=== PATIENT | female | born 1960 | race Caucasian/White ===

== ENCOUNTER 2019-04-03 10:45 | Emergency (ER) | payer OTHER ==
[2019-04-03] MEDS ORDERED: Acetaminophen 500 MG TAB ONE (11:20)
[2019-04-03] MEDS ORDERED: Labetalol HCl 100 MG/20 ML VIAL ONE (11:20)
[2019-04-03] MEDS ORDERED: Ondansetron PF 4 MG/2 ML Vial ONE (11:20)
[2019-04-03 11:31] LABS: #Basophils 0.1 thou/uL (0.0-0.2); #Eosinphils 0.1 thou/uL (0.0-0.7); #Lymphocytes 3.1 thou/uL (1.20-3.40); #Monocytes 0.5 thou/uL (0.11-0.59); %Basophils 1.2 % (0.0-1.0); %Eosinophils 1.2 % (0.0-10.0); %Lymphocytes 45.5 % (21.0-51.0); %Monocytes 7.4 % (0.0-10.0); %Neutrophils 44.7 % (42.0-75.0); Hemoglobin 14.5 g/dL (12.0-16.0); Mean Corpuscular HGB CONC 33.1 g/dL (32.0-36.0); Mean Corpuscular Hemoglobin 28.9 pg (27.0-31.0); Mean Corpuscular Volume 87.3 fL (78.0-98.0); Mean Platelet Volume 6.3 fL (7.4-10.4); Platelet Count 321 thou/uL (130-400); RBC Distribution Width 12.3 % (11.5-14.5); Red Blood Cell (RBC) Count 5.01 mill/uL (4.20-5.40); White Blood Cell (WBC) Count 6.8 thou/uL (4.8-10.8)
--- NOTE | 2019-04-03 11:32 | RAD ---
EXAM: Chest PA and lateral: HISTORY: Headache COMPARISON: 05/02/2018 FINDINGS: Lung peace are clear. Vascular markings are normal. Heart and mediastinum appear unremarkable. Osseous structures are unremarkable. IMPRESSION: Unremarkable chest
[2019-04-03 11:42] LABS: ALT (SGPT) 22 U/L (8-55); AST (SGOT) 20 U/L (5-34); Albumin 4.3 g/dL (3.5-5.0); Alkaline Phosphatase 101 U/L (40-110); Anion Gap 12 mmol/L (10-20); BUN (Urea Nitrogen) 13 mg/dL (9.8-20.1); Bilirubin, Total 0.4 mg/dL (0.2-1.2); Calc. Creatinine Clearance 0 mL/min (70-130); Carbon Dioxide 24 mmol/L (22-29); Chloride 106 mmol/L (98-107); Estimated GFR-MDRD 85; Globulin 3.4 g/dL (2.4-3.5); Glucose 116 mg/dL (70-105); Potassium 3.9 mmol/L (3.5-5.1); Protein, Total 7.7 g/dL (6.0-8.3); Sodium 138 mmol/L (136-145)
== END 2019-04-03 12:39 | disposition home or self-care (01) ==
LOC: MADERS 10:45
DX: I10 Essential (primary) hypertension (principal); E11.9 Type 2 diabetes mellitus without complications; K21.9 Gastro-esophageal reflux disease without esophagitis; J44.9 Chronic obstructive pulmonary disease, unspecified; F41.9 Anxiety disorder, unspecified; F31.9 Bipolar disorder, unspecified; F43.10 Post-traumatic stress disorder, unspecified; F17.210 Nicotine dependence, cigarettes, uncomplicated; Z79.899 Other long term (current) drug therapy; Z71.6 Tobacco abuse counseling
CPT/HCPCS: 71046; 80053; 83880; 84484; 85025; 93005; 96374; 96375; 99406; J2405

== ENCOUNTER 2019-08-16 12:29 | Outpatient (CLI) | payer OTHER ==
[2019-08-16 12:58] LABS: Anion Gap 13 mmol/L (10-20); BUN (Urea Nitrogen) 11 mg/dL (9.8-20.1); Calc. Creatinine Clearance 0 mL/min (70-130); Calcium 9.5 mg/dL (7.8-10.44); Carbon Dioxide 24 mmol/L (22-29); Chloride 102 mmol/L (98-107); Estimated GFR-MDRD 89; Glucose 99 mg/dL (70-105); Potassium 4.3 mmol/L (3.5-5.1); Sodium 135 mmol/L (136-145)
== END 2019-08-16 12:30 | disposition home or self-care (01) ==
LOC: MADLAB 12:29
PROVIDERS: ATTEND Family Medicine
DX: R25.2 Cramp and spasm (principal)
CPT/HCPCS: 36415; 80048

== ENCOUNTER 2019-10-02 09:58 | Outpatient (CLI) | payer OTHER ==
[2019-10-02 10:51] LABS: #Basophils 0.1 thou/uL (0.0-0.2); #Eosinphils 0.1 thou/uL (0.0-0.7); #Lymphocytes 2.2 thou/uL (1.20-3.40); #Monocytes 0.5 thou/uL (0.11-0.59); #Neutrophils 4.1 thou/uL (1.40-6.50); %Basophils 0.9 % (0.0-1.0); %Eosinophils 1.4 % (0.0-10.0); %Lymphocytes 31.8 % (21.0-51.0); %Monocytes 7.2 % (0.0-10.0); %Neutrophils 58.6 % (42.0-75.0); Hemoglobin 13.8 g/dL (12.0-16.0); Mean Corpuscular HGB CONC 31.9 g/dL (32.0-36.0); Mean Corpuscular Hemoglobin 29.8 pg (27.0-31.0); Mean Corpuscular Volume 93.5 fL (78.0-98.0); Platelet Count 299 thou/uL (130-400); RBC Distribution Width 11.9 % (11.5-14.5); Red Blood Cell (RBC) Count 4.63 mill/uL (4.20-5.40)
[2019-10-02 10:52] LABS: Phencyclidine (PCP) Not Detected (NotDetected); THC/Cannabinoid Screen Detected (NotDetected)
[2019-10-02 10:53] LABS: Amphetamine Not Detected (NotDetected); Barbiturates Screen Not Detected (NotDetected); Benzodiazepine Screen Not Detected (NotDetected); Cocaine Metabolite Screen Not Detected (NotDetected); Medtox Control Line Valid? VALID (VALID); Methadone Not Detected (NotDetected); Methamphetamine Not Detected (NotDetected); Opiate Screen Not Detected (NotDetected); Oxycodone Screen Not Detected (NotDetected); Tricyclic Screen Not Detected (NotDetected)
[2019-10-02 10:58] LABS: INR-International Normal Ratio 0.9; Prothrombin Time 12.2 SEC (12.0-14.7)
[2019-10-02 14:55] LABS: ALT (SGPT) 33 U/L (8-55); AST (SGOT) 29 U/L (5-34); Albumin 4.4 g/dL (3.5-5.0); Alkaline Phosphatase 117 U/L (40-110); Anion Gap 17 mmol/L (10-20); BUN (Urea Nitrogen) 9 mg/dL (9.8-20.1); Bilirubin, Total 0.4 mg/dL (0.2-1.2); Calc. Creatinine Clearance 0 mL/min (70-130); Calcium 9.1 mg/dL (7.8-10.44); Carbon Dioxide 23 mmol/L (22-29); Chloride 107 mmol/L (98-107); Estimated GFR-MDRD 77; Globulin 3.5 g/dL (2.4-3.5); Glucose 134 mg/dL (70-105); Potassium 3.7 mmol/L (3.5-5.1); Protein, Total 7.9 g/dL (6.0-8.3); Sodium 143 mmol/L (136-145)
[2019-10-02 15:25] LABS: Alcohol Less than 10 mg/dL (Less than 10)
[2019-10-02 22:43] LABS: HBCM Index 0.14 S/CO (0-0.79); HBSAg Index 0.13 S/CO (0-0.99); Hep B Surf Ag Non-Reactive S/CO (NonReactive); Hepatitis B Core IgM Abs Non-Reactive (NonReactive)
[2019-10-02 22:51] LABS: Hep B Core Total Ab Reactive (NonReactive); Hep B Core Total Index 7.89 S/CO (0-0.79)
[2019-10-02 23:34] LABS: HBSAB Concentration 5058.81 mIU/mL
[2019-10-03 06:42] LABS: Hep B Surf AB Reactive (NonReactive)
[2019-10-03 11:44] LABS: Ref Lab Test Ordered LIVER FIBROSIS PANEL; Reference Lab Name LABCORP
== END 2019-10-02 09:59 | disposition home or self-care (01) ==
LOC: MADLAB 09:58
PROVIDERS: ATTEND Physician Assistant Medical
DX: B18.2 Chronic viral hepatitis C (principal)
CPT/HCPCS: 36415; 80053; 80306; 80307; 85025; 85610; 86704; 86705; 86706; 86708; 87340; 87522; 87902

== ENCOUNTER 2019-12-10 05:44 | Emergency (ER) | payer OTHER ==
[2019-12-10] MEDS ORDERED: Ondansetron PF 4 MG/2 ML Vial ONE (06:37)
[2019-12-10 07:05] LABS: Hemoglobin 15.8 g/dL (12.0-16.0); Manual Diff?? YES; Mean Corpuscular HGB CONC 31.4 g/dL (32.0-36.0); Mean Corpuscular Hemoglobin 27.9 pg (27.0-31.0); Mean Corpuscular Volume 88.7 fL (78.0-98.0); Mean Platelet Volume 7.8 fL (7.4-10.4); Platelet Count 443 thou/uL (130-400); RBC Distribution Width 11.8 % (11.5-14.5); Red Blood Cell (RBC) Count 5.67 mill/uL (4.20-5.40); White Blood Cell (WBC) Count 16.2 thou/uL (4.8-10.8)
[2019-12-10 07:08] LABS: ALT (SGPT) 48 U/L (8-55); AST (SGOT) 80 U/L (5-34); Albumin 5.1 g/dL (3.5-5.0); Alcohol Less than 10 mg/dL (Less than 10); Alkaline Phosphatase 120 U/L (40-110); Anion Gap 23 mmol/L (10-20); BUN (Urea Nitrogen) 28 mg/dL (9.8-20.1); Bilirubin, Total 0.9 mg/dL (0.2-1.2); CK (CPK) 2054 U/L (29-168); CRP (Inflammatory) Less than 0.50 mg/dL (= or < 0.5); Calc. Creatinine Clearance 0 mL/min (70-130); Calcium 10.4 mg/dL (7.8-10.44); Carbon Dioxide 16 mmol/L (22-29); Chloride 103 mmol/L (98-107); Estimated GFR-MDRD 61; Globulin 3.8 g/dL (2.4-3.5); Glucose 189 mg/dL (70-105); Potassium 3.7 mmol/L (3.5-5.1); Protein, Total 8.9 g/dL (6.0-8.3); Sodium 138 mmol/L (136-145)
[2019-12-10 07:10] LABS: Anisocytosis SLIGHT = 6-15 cells (100X) (0-5/hpf); Band 1 % (5-11); Lymphocytes 23 % (21-51); MDiff Complete? YES; Monocytes 3 % (0-10); Neutrophil 73 % (42-75); Platelet Morphology Comment Appears Increased
[2019-12-10] MEDS ORDERED: Diazepam 10 MG/2 ML SYRINGE ONE (07:31)
[2019-12-10] MEDS ORDERED: Aspirin Chewable 81 MG TAB ONE (07:31)
[2019-12-10 07:36] LABS: Amphetamine Not Detected (NotDetected); Barbiturates Screen Not Detected (NotDetected); Benzodiazepine Screen Not Detected (NotDetected); Cocaine Metabolite Screen Not Detected (NotDetected); Methadone Not Detected (NotDetected); Methamphetamine Not Detected (NotDetected); Opiate Screen Not Detected (NotDetected); Oxycodone Screen Not Detected (NotDetected); Phencyclidine (PCP) Not Detected (NotDetected); THC/Cannabinoid Screen Detected (NotDetected); Tricyclic Screen Not Detected (NotDetected)
[2019-12-10 07:37] LABS: Medtox Control Line Valid? VALID (VALID)
[2019-12-10 07:39] LABS: Bilirubin Small (Negative); Blood, Urine Small (Negative); Clarity Clear (Clear); Glucose, Urine (Dipstick) Negative (Negative); Ketone, Urine 40 mg/dL (Negative); Leukocyte Negative (Negative); Nitrite Negative (Negative); Protein, Urine (Dipstick) > or equal to 300 mg/dL (Neg-Trace); Specific Gravity, Urine 1.025 (1.005-1.030)
[2019-12-10 07:40] LABS: Bacteria/HPF Rare-Few HPF (None Seen); RBC/HPF 0-3 HPF (0-3); Transitional Epithelial 0-3 HPF (None Seen); WBC/HPF 0-3 HPF (0-3)
--- NOTE | 2019-12-10 07:54 | RAD ---
Chest one view HISTORY: Chest pain. COMPARISON: 04/03/2019. FINDINGS: Cardiac silhouette is magnified by projection. Pulmonary vasculature is unremarkable. Mediastinum is midline with aortic calcification. No lobar consolidation or evidence of pneumothorax. 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 IMPRESSION : Atherosclerosis. No active cardiopulmonary abnormalities are otherwise demonstrated.
[2019-12-10] MEDS ORDERED: Promethazine HCl 25 MG/ML VIAL ONE (08:06)
[2019-12-10] MEDS ORDERED: Sodium Chloride 0.9% 1,000 ML BAG ONE (09:40)
== END 2019-12-10 09:40 | disposition short-term general hospital (02) ==
LOC: MADERS 05:44
DX: M62.82 Rhabdomyolysis (principal); E86.0 Dehydration; E11.9 Type 2 diabetes mellitus without complications; K21.9 Gastro-esophageal reflux disease without esophagitis; I10 Essential (primary) hypertension; J44.9 Chronic obstructive pulmonary disease, unspecified; F41.9 Anxiety disorder, unspecified; F31.9 Bipolar disorder, unspecified; F17.210 Nicotine dependence, cigarettes, uncomplicated; Z79.899 Other long term (current) drug therapy
CPT/HCPCS: 71045; 80053; 80306; 80307; 81003; 81015; 82150; 82550; 82553; 83690; 84484; 85025; 86140; 93005; J2405; J2550; J3360; J7050

== ENCOUNTER 2020-06-21 19:18 | Emergency (ER) | payer OTHER ==
[2020-06-21] MEDS ORDERED: ALPRAZolam 0.5 MG TAB ONE (20:03)
[2020-06-21 20:24] LABS: Bilirubin Negative (Negative); Blood, Urine Negative (Negative); Clarity Clear (Clear); Glucose, Urine (Dipstick) Negative (Negative); Ketone, Urine Negative (Negative); Leukocyte Negative (Negative); Nitrite Negative (Negative); Protein, Urine (Dipstick) Negative (Neg-Trace); Urobilinogen 0.2 mg/dL (Less than 2)
[2020-06-21 20:27] LABS: Hemoglobin 13.4 g/dL (12.0-16.0); Mean Corpuscular HGB CONC 34.5 g/dL (32.0-36.0); Mean Corpuscular Hemoglobin 30.7 pg (27.0-31.0); Mean Platelet Volume 6.7 fL (7.4-10.4); Platelet Count 298 thou/uL (130-400); RBC Distribution Width 12.4 % (11.5-14.5); Red Blood Cell (RBC) Count 4.36 mill/uL (4.20-5.40); White Blood Cell (WBC) Count 8.2 thou/uL (4.8-10.8)
[2020-06-21 20:33] LABS: Amphetamine Not Detected (NotDetected); Barbiturates Screen Not Detected (NotDetected); Benzodiazepine Screen Not Detected (NotDetected); Cocaine Metabolite Screen Not Detected (NotDetected); Medtox Control Line Valid? VALID (VALID); Methadone Not Detected (NotDetected); Methamphetamine Not Detected (NotDetected); Opiate Screen Not Detected (NotDetected); Oxycodone Screen Not Detected (NotDetected); Phencyclidine (PCP) Not Detected (NotDetected); THC/Cannabinoid Screen Not Detected (NotDetected); Tricyclic Screen Not Detected (NotDetected)
[2020-06-21 20:40] LABS: Band 2 % (5-11); Eosinophils 4 % (0-10); Lymphocytes 51 % (21-51); MDiff Complete? YES; Monocytes 9 % (0-10); Neutrophil 34 % (42-75); Platelet Morphology Comment Appears Adequate; RBC Morphology Normal
[2020-06-21 20:59] LABS: ALT (SGPT) 27 U/L (8-55); AST (SGOT) 22 U/L (5-34); Albumin 4.4 g/dL (3.5-5.0); Alkaline Phosphatase 76 U/L (40-110); Anion Gap 16 mmol/L (10-20); BUN (Urea Nitrogen) 7 mg/dL (9.8-20.1); Bilirubin, Total 0.3 mg/dL (0.2-1.2); Calc. Creatinine Clearance 0 mL/min (70-130); Calcium 9.1 mg/dL (7.8-10.44); Carbon Dioxide 23 mmol/L (22-29); Chloride 99 mmol/L (98-107); Glucose 111 mg/dL (70-105); Lipase 12 U/L (8-78); Magnesium 1.6 mg/dL (1.6-2.6); Potassium 3.3 mmol/L (3.5-5.1); Protein, Total 7.4 g/dL (6.0-8.3); Sodium 135 mmol/L (136-145)
[2020-06-21 21:00] LABS: Acetaminophen Less than 6.0 mcg/mL (10.0-30.0); Alcohol Less than 10 mg/dL (Less than 10); CK (CPK) 177 U/L (29-168); Salicylate Less than 8.0 mg/dL (15.0-30.0)
== END 2020-06-21 21:11 | disposition home or self-care (01) ==
LOC: MADERS 19:18
DX: F20.0 Paranoid schizophrenia (principal); E11.9 Type 2 diabetes mellitus without complications; K21.9 Gastro-esophageal reflux disease without esophagitis; I10 Essential (primary) hypertension; J44.9 Chronic obstructive pulmonary disease, unspecified; K58.9 Irritable bowel syndrome, unspecified; F17.210 Nicotine dependence, cigarettes, uncomplicated; Z79.899 Other long term (current) drug therapy; Z79.84 Long term (current) use of oral hypoglycemic drugs; Z79.51 Long term (current) use of inhaled steroids
CPT/HCPCS: 80053; 80306; 80307; 81003; 82550; 83605; 83690; 83735; 84443; 84484; 85025; 93005

== ENCOUNTER 2020-06-24 06:45 | Emergency (ER) | payer OTHER ==
[2020-06-24 07:26] LABS: #Basophils 0.1 thou/uL (0.0-0.2); #Eosinphils 0.2 thou/uL (0.0-0.7); #Lymphocytes 3.7 thou/uL (1.20-3.40); #Monocytes 0.7 thou/uL (0.11-0.59); #Neutrophils 3.9 thou/uL (1.40-6.50); %Basophils 1.4 % (0.0-1.0); %Eosinophils 2.1 % (0.0-10.0); %Lymphocytes 42.8 % (21.0-51.0); %Monocytes 8.6 % (0.0-10.0); %Neutrophils 45.1 % (42.0-75.0); Hemoglobin 14.3 g/dL (12.0-16.0); Mean Corpuscular HGB CONC 34.2 g/dL (32.0-36.0); Mean Corpuscular Hemoglobin 30.6 pg (27.0-31.0); Mean Corpuscular Volume 89.4 fL (78.0-98.0); Mean Platelet Volume 6.9 fL (7.4-10.4); Platelet Count 323 thou/uL (130-400); RBC Distribution Width 12.7 % (11.5-14.5); Red Blood Cell (RBC) Count 4.68 mill/uL (4.20-5.40); White Blood Cell (WBC) Count 8.6 thou/uL (4.8-10.8)
[2020-06-24] MEDS ORDERED: Lorazepam 2 MG/ML VIAL ONE (07:26)
[2020-06-24 07:38] LABS: Acetaminophen Less than 6.0 mcg/mL (10.0-30.0); Alcohol Less than 10 mg/dL (Less than 10); Salicylate Less than 8.0 mg/dL (15.0-30.0)
[2020-06-24 07:41] LABS: ALT (SGPT) 25 U/L (8-55); AST (SGOT) 21 U/L (5-34); Albumin 4.4 g/dL (3.5-5.0); Alcohol Less than 10 mg/dL (Less than 10); Alkaline Phosphatase 83 U/L (40-110); Anion Gap 17 mmol/L (10-20); BUN (Urea Nitrogen) 6 mg/dL (9.8-20.1); Bilirubin, Total 0.4 mg/dL (0.2-1.2); CK (CPK) 137 U/L (29-168); Calc. Creatinine Clearance 0 mL/min (70-130); Calcium 9.6 mg/dL (7.8-10.44); Carbon Dioxide 24 mmol/L (22-29); Chloride 103 mmol/L (98-107); Glucose 115 mg/dL (70-105); Potassium 3.7 mmol/L (3.5-5.1); Protein, Total 7.4 g/dL (6.0-8.3); Sodium 140 mmol/L (136-145)
[2020-06-24 07:58] LABS: Cocaine Metabolite Screen Not Detected (NotDetected); Methamphetamine Not Detected (NotDetected); Opiate Screen Detected (NotDetected); Phencyclidine (PCP) Not Detected (NotDetected); THC/Cannabinoid Screen Detected (NotDetected)
[2020-06-24 07:59] LABS: Amphetamine Not Detected (NotDetected); Barbiturates Screen Not Detected (NotDetected); Benzodiazepine Screen Detected (NotDetected); Medtox Control Line Valid? VALID (VALID); Methadone Not Detected (NotDetected); Oxycodone Screen Not Detected (NotDetected); Tricyclic Screen Not Detected (NotDetected)
[2020-06-24] MEDS ORDERED: Lorazepam 1 MG TAB ONE (11:03)
[2020-06-24] MEDS ORDERED: hydrALAZINE 10 MG TAB ONE (12:27)
[2020-06-24] MEDS ORDERED: Amlodipine 5 MG TAB ONE (12:27)
[2020-06-24 12:32] LABS: SARS-CoV-2 NAA Rapid Test Not Detected (NotDetected)
== END 2020-06-24 14:45 | disposition short-term general hospital (02) ==
LOC: MADERS 06:45
DX: R45.851 Suicidal ideations (principal); F23 Brief psychotic disorder; S00.83XA Contusion of other part of head, initial encounter; E11.9 Type 2 diabetes mellitus without complications; K21.9 Gastro-esophageal reflux disease without esophagitis; I10 Essential (primary) hypertension; J44.9 Chronic obstructive pulmonary disease, unspecified; K58.9 Irritable bowel syndrome, unspecified; F17.210 Nicotine dependence, cigarettes, uncomplicated; Z79.899 Other long term (current) drug therapy; Z79.84 Long term (current) use of oral hypoglycemic drugs; X58.XXXA Exposure to other specified factors, initial encounter
CPT/HCPCS: 0240U; 80053; 80306; 80307; 82550; 84443; 85025; 93005; 96374; J2060

== ENCOUNTER 2020-09-11 13:30 | Emergency (ER) | payer OTHER ==
[2020-09-11] MEDS ORDERED: HYDROcodone/Acetaminophen 5/325 mg Tablet ONE (14:36)
[2020-09-11] MEDS ORDERED: Ibuprofen 800 MG TAB ONE (14:36)
== END 2020-09-11 14:45 | disposition home or self-care (01) ==
LOC: MADERS 13:30
DX: S90.31XA Contusion of right foot, initial encounter (principal); E11.9 Type 2 diabetes mellitus without complications; K21.9 Gastro-esophageal reflux disease without esophagitis; I10 Essential (primary) hypertension; J44.9 Chronic obstructive pulmonary disease, unspecified; F17.210 Nicotine dependence, cigarettes, uncomplicated; W10.9XXA Fall (on) (from) unspecified stairs and steps, initial encounter

== ENCOUNTER 2021-02-14 08:00 | Emergency (ER) | payer OTHER ==
[2021-02-14] MEDS ORDERED: Ketorolac Tromethamine 30 MG/ML VIAL ONE (08:33)
[2021-02-14] MEDS ORDERED: Sodium Chloride 0.9% 1,000 ML ONE (08:33)
[2021-02-14] MEDS ORDERED: Loperamide HCl 2 MG CAP ONE (08:33)
[2021-02-14 08:42] LABS: Bilirubin Negative (Negative); Blood, Urine Negative (Negative); Clarity Clear (Clear); Glucose, Urine (Dipstick) Negative (Negative); Ketone, Urine Negative (Negative); Leukocyte Negative (Negative); Nitrite Negative (Negative); Protein, Urine (Dipstick) Negative (Neg-Trace); Urobilinogen 0.2 mg/dL (Less than 2)
[2021-02-14 08:53] LABS: #Basophils 0.1 thou/uL (0.0-0.2); #Monocytes 0.7 thou/uL (0.11-0.59); #Neutrophils 5.3 thou/uL (1.40-6.50); %Basophils 0.8 % (0.0-1.0); %Eosinophils 0.4 % (0.0-10.0); %Lymphocytes 24.4 % (21.0-51.0); %Monocytes 8.1 % (0.0-10.0); %Neutrophils 66.3 % (42.0-75.0); Hemoglobin 14.1 g/dL (12.0-16.0); Mean Corpuscular HGB CONC 32.9 g/dL (32.0-36.0); Mean Corpuscular Hemoglobin 28.7 pg (27.0-31.0); Mean Corpuscular Volume 87.4 fL (78.0-98.0); Mean Platelet Volume 7.9 fL (7.4-10.4); Platelet Count 262 thou/uL (130-400); RBC Distribution Width 12.3 % (11.5-14.5); Red Blood Cell (RBC) Count 4.92 mill/uL (4.20-5.40)
[2021-02-14 09:11] LABS: ALT (SGPT) 32 U/L (8-55); AST (SGOT) 29 U/L (5-34); Alkaline Phosphatase 116 U/L (40-110); Anion Gap 12 mmol/L (10-20); BUN (Urea Nitrogen) 7 mg/dL (9.8-20.1); Bilirubin, Total 0.5 mg/dL (0.2-1.2); Calc. Creatinine Clearance 0 mL/min (70-130); Carbon Dioxide 25 mmol/L (22-29); Chloride 106 mmol/L (98-107); Globulin 3.7 g/dL (2.4-3.5); Glucose 108 mg/dL (70-105); Lipase 19 U/L (8-78); Potassium 3.1 mmol/L (3.5-5.1); Protein, Total 7.7 g/dL (6.0-8.3); Sodium 140 mmol/L (136-145)
[2021-02-14 10:03] LABS: SARS-CoV-2 NAA Rapid Test Not Detected (NotDetected)
== END 2021-02-14 09:39 | disposition home or self-care (01) ==
LOC: MADERS 08:00
DX: R10.32 Left lower quadrant pain (principal); R09.81 Nasal congestion; Z20.822 Contact with and (suspected) exposure to COVID-19; I10 Essential (primary) hypertension; E11.9 Type 2 diabetes mellitus without complications; K21.9 Gastro-esophageal reflux disease without esophagitis; J44.9 Chronic obstructive pulmonary disease, unspecified; K58.9 Irritable bowel syndrome, unspecified; F17.210 Nicotine dependence, cigarettes, uncomplicated; Z79.899 Other long term (current) drug therapy
CPT/HCPCS: 74176; 80053; 81003; 83690; 85025; 96374; J1885; J7050; U0002

== ENCOUNTER 2021-07-14 14:11 | Emergency (ER) | payer OTHER | END 2021-07-14 16:19 | disposition home or self-care (01) | LOC: MADERS 14:11 | DX: S52.122A Displaced fracture of head of left radius, initial encounter for closed fracture (principal); S52.132A Displaced fracture of neck of left radius, initial encounter for closed fracture; I10 Essential (primary) hypertension; E11.9 Type 2 diabetes mellitus without complications; K21.9 Gastro-esophageal reflux disease without esophagitis; J44.9 Chronic obstructive pulmonary disease, unspecified; F17.210 Nicotine dependence, cigarettes, uncomplicated; W18.30XA Fall on same level, unspecified, initial encounter; Z79.899 Other long term (current) drug therapy ==

== ENCOUNTER 2021-07-17 10:07 | Emergency (ER) | payer OTHER ==
[2021-07-17] MEDS ORDERED: Ondansetron ODT 4 MG TAB ONE (11:01)
[2021-07-17] MEDS ORDERED: HYDROcodone/Acetaminophen 5/325 mg Tablet ONE (11:01)
== END 2021-07-17 11:56 | disposition home or self-care (01) ==
LOC: MADERS 10:07
DX: S52.122D Displaced fracture of head of left radius, subsequent encounter for closed fracture with routine healing (principal); I10 Essential (primary) hypertension; M25.422 Effusion, left elbow; R11.10 Vomiting, unspecified; K21.9 Gastro-esophageal reflux disease without esophagitis; J44.9 Chronic obstructive pulmonary disease, unspecified; F17.210 Nicotine dependence, cigarettes, uncomplicated; W19.XXXD Unspecified fall, subsequent encounter; Z79.899 Other long term (current) drug therapy
CPT/HCPCS: Q0162

== ENCOUNTER 2021-10-31 07:43 | Emergency (ER) | payer MEDICAID, OTHER ==
[2021-10-31] MEDS ORDERED: Sodium Chloride 0.9% 1,000 ML ONE (08:36)
[2021-10-31] MEDS ORDERED: diphenhydrAMINE 50 MG/ML VIAL ONE (08:36)
[2021-10-31] MEDS ORDERED: Metoclopramide HCl 10 MG/2 ML VIAL ONE (08:36)
[2021-10-31 08:51] LABS: ALT (SGPT) 28 U/L (8-55); AST (SGOT) 33 U/L (5-34); Albumin 3.9 g/dL (3.5-5.0); Alkaline Phosphatase 103 U/L (40-110); Anion Gap 17 mmol/L (10-20); BUN (Urea Nitrogen) 7 mg/dL (9.8-20.1); Bilirubin, Total 0.5 mg/dL (0.2-1.2); CK (CPK) 129 U/L (29-168); Calc. Creatinine Clearance 0 mL/min (70-130); Calcium 9.5 mg/dL (7.8-10.44); Carbon Dioxide 23 mmol/L (22-29); Chloride 107 mmol/L (98-107); Globulin 3.5 g/dL (2.4-3.5); Glucose 120 mg/dL (70-105); Hemoglobin 14.2 g/dL (12.0-16.0); Lipase 13 U/L (8-78); Mean Corpuscular HGB CONC 32.1 g/dL (32.0-36.0); Mean Corpuscular Hemoglobin 28.1 pg (27.0-31.0); Mean Corpuscular Volume 87.7 fL (78.0-98.0); Mean Platelet Volume 8.6 fL (7.4-10.4); Platelet Count 255 thou/uL (130-400); Potassium 3.6 mmol/L (3.5-5.1); Protein, Total 7.4 g/dL (6.0-8.3); RBC Distribution Width 12.5 % (11.5-14.5); Red Blood Cell (RBC) Count 5.05 mill/uL (4.20-5.40); Sodium 143 mmol/L (136-145)
[2021-10-31 08:52] LABS: Band 3 % (5-11); Eosinophils 2 % (0-10); Lymphocytes 19 % (21-51); MDiff Complete? YES; Manual Diff?? YES; Monocytes 1 % (0-10); Neutrophil 37 % (42-75); Platelet Morphology Comment Appears Adequate; RBC Morphology Normal; Reactive Lymphocytes 38 % (0-10); Reflex for Review?? YES
[2021-10-31 09:08] LABS: Bilirubin Negative (Negative); Blood, Urine Negative (Negative); Clarity Clear (Clear); Glucose, Urine (Dipstick) Negative (Negative); Ketone, Urine Negative (Negative); Leukocyte Negative (Negative); Nitrite Negative (Negative); Protein, Urine (Dipstick) Negative (Neg-Trace); Urobilinogen 0.2 mg/dL (Less than 2)
[2021-10-31] MEDS ORDERED: Ketorolac Tromethamine 30 MG/ML VIAL ONE (09:24)
[2021-10-31] MEDS ORDERED: Lorazepam 2 MG/ML VIAL ONE (10:30)
[2021-10-31] MEDS ORDERED: methylPREDNISolone Sod Succ/PF 125 MG/2 ML VIAL ONE (10:30)
[2021-10-31] MEDS ORDERED: Magnesium 2 GM/50 ML BAG (IN WATER) ONE (10:30)
== END 2021-10-31 13:05 | disposition home or self-care (01) ==
LOC: MADERS 07:43
DX: R51.9 Headache, unspecified (principal); I10 Essential (primary) hypertension; E11.9 Type 2 diabetes mellitus without complications; K21.9 Gastro-esophageal reflux disease without esophagitis; J44.9 Chronic obstructive pulmonary disease, unspecified; G25.81 Restless legs syndrome; F17.210 Nicotine dependence, cigarettes, uncomplicated
CPT/HCPCS: 70450; 71045; 80053; 81003; 82550; 83690; 84484; 85025; 85060; 93005; 96365; 96375; J1200; J1885; J2060; J2765; J2930; J3475; J7050

== ENCOUNTER 2022-04-06 07:33 | Emergency (ER) | payer OTHER ==
[2022-04-06] MEDS ORDERED: Ondansetron PF 4 MG/2 ML Vial ONE (08:36)
[2022-04-06] MEDS ORDERED: Sodium Chloride 0.9% 1,000 ML ONE (08:36)
[2022-04-06] MEDS ORDERED: Dicyclomine 20 MG/2 ML VIAL ONE (08:36)
[2022-04-06] MEDS ORDERED: Ketorolac Tromethamine 30 MG/ML VIAL ONE (08:36)
[2022-04-06 09:04] LABS: Potassium 3.9 mmol/L (3.5-5.1); Sodium 138 mmol/L (136-145)
[2022-04-06 09:05] LABS: #Basophils 0.1 thou/uL (0.0-0.2); #Eosinphils 0.1 thou/uL (0.0-0.7); #Lymphocytes 3.7 thou/uL (1.20-3.40); #Monocytes 0.6 thou/uL (0.11-0.59); #Neutrophils 3.4 thou/uL (1.40-6.50); %Eosinophils 0.9 % (0.0-10.0); %Monocytes 7.3 % (0.0-10.0); %Neutrophils 43.8 % (42.0-75.0); Albumin 4.5 g/dL (3.5-5.0); Alkaline Phosphatase 63 U/L (40-110); BUN (Urea Nitrogen) 12 mg/dL (9.8-20.1); Bilirubin, Total 0.8 mg/dL (0.2-1.2); Calc. Creatinine Clearance 0 mL/min (70-130); Carbon Dioxide 18 mmol/L (22-29); Chloride 106 mmol/L (98-107); Estimated GFR 94; Globulin 3.6 g/dL (2.4-3.5); Glucose 116 mg/dL (70-105); Hemoglobin 13.8 g/dL (12.0-16.0); Mean Corpuscular HGB CONC 33.4 g/dL (32.0-36.0); Platelet Count 348 thou/uL (130-400); Protein, Total 8.1 g/dL (6.0-8.3); RBC Distribution Width 12.3 % (11.5-14.5); Red Blood Cell (RBC) Count 4.59 mill/uL (4.20-5.40); White Blood Cell (WBC) Count 7.8 thou/uL (4.8-10.8)
[2022-04-06 09:06] LABS: ALT (SGPT) 38 U/L (8-55); AST (SGOT) 36 U/L (5-34); Anion Gap 16 mmol/L (10-20)
[2022-04-06 09:20] LABS: CRP (Inflammatory) Less than 0.50 mg/dL (= or < 0.5)
[2022-04-06] MEDS ORDERED: Iopamidol 370 76% 100 ML VIAL ONE (09:35)
[2022-04-06 09:39] LABS: Bilirubin Negative (Negative); Blood, Urine Negative (Negative); Clarity Clear (Clear); Glucose, Urine (Dipstick) Negative (Negative); Ketone, Urine Negative (Negative); Leukocyte Negative (Negative); Nitrite Negative (Negative); Protein, Urine (Dipstick) Negative (Neg-Trace); Specific Gravity, Urine 1.015 (1.005-1.030); pH, Urine 8.5 (5.0-9.0)
== END 2022-04-06 10:40 | disposition home or self-care (01) ==
LOC: MADERS 07:33
DX: K59.00 Constipation, unspecified (principal); G89.29 Other chronic pain; E78.5 Hyperlipidemia, unspecified; K21.9 Gastro-esophageal reflux disease without esophagitis; I12.9 Hypertensive chronic kidney disease with stage 1 through stage 4 chronic kidney disease, or unspecified chronic kidney disease; E11.22 Type 2 diabetes mellitus with diabetic chronic kidney disease; N18.9 Chronic kidney disease, unspecified; J44.9 Chronic obstructive pulmonary disease, unspecified; F17.210 Nicotine dependence, cigarettes, uncomplicated; Z79.01 Long term (current) use of anticoagulants; Z79.899 Other long term (current) drug therapy
CPT/HCPCS: 74177; 80053; 81003; 83605; 83690; 84484; 85025; 86140; 96372; 96374; 96375; J1885; J2405; J7050; Q9967

== ENCOUNTER 2022-09-21 07:41 | Outpatient (CLI) | payer OTHER | END 2022-09-21 07:42 | disposition home or self-care (01) | LOC: MADULT 07:41 | PROVIDERS: ATTEND Family Medicine | DX: R10.11 Right upper quadrant pain (principal) | CPT/HCPCS: 76705 ==

== ENCOUNTER 2023-07-06 07:40 | Outpatient (CLI) | payer OTHER ==
[2023-07-06 08:16] LABS: ALT (SGPT) 35 U/L (8-55); AST (SGOT) 32 U/L (5-34); Albumin 4.3 g/dL (3.4-4.8); Alkaline Phosphatase 43 U/L (40-110); Anion Gap 12 mmol/L (10-20); BUN (Urea Nitrogen) 7 mg/dL (9.8-20.1); Bilirubin, Total 0.5 mg/dL (0.2-1.2); Calc. Creatinine Clearance 0 mL/min (70-130); Calcium 9.5 mg/dL (7.8-10.44); Carbon Dioxide 25 mmol/L (23-31); Cardiac Risk 2.4 (Less than 4.5); Chloride 108 mmol/L (98-107); Cholesterol 139 mg/dl (< 200 Desired); Estimated GFR 98; Globulin 2.9 g/dL (2.4-3.5); Glucose 115 mg/dL (80-115); HDL Cholesterol 59 mg/dL (>60 Neg Risk); LDL Cholesterol, Calculated 64 mg/dL; Potassium 3.9 mmol/L (3.5-5.1); Protein, Total 7.2 g/dL (5.8-8.1); Sodium 141 mmol/L (136-145); Triglycerides 81 mg/dL (Less than 150)
[2023-07-06 08:19] LABS: Hematocrit 39.6 % (36.0-47.0); Hemoglobin 13.1 g/dL (12.0-16.0); Mean Corpuscular HGB CONC 33.1 g/dL (32.0-36.0); Mean Corpuscular Volume 93.9 fl (78.0-98.0); Mean Platelet Volume 7.9 fL (7.4-10.4); Platelet Count 274 10x3/uL (130-400); RBC Distribution Width 12.8 % (11.5-14.5); Red Blood Cell (RBC) Count 4.22 mill/uL (4.20-5.40); White Blood Cell (WBC) Count 6.2 10x3/uL (4.8-10.8)
== END 2023-07-06 07:41 | disposition home or self-care (01) ==
LOC: MADLAB 07:40
PROVIDERS: ATTEND Student in an Organized Health Care Education/Training Program
DX: R10.9 Unspecified abdominal pain (principal)
CPT/HCPCS: 36415; 74019; 80053; 80061; 84443; 85027

== ENCOUNTER 2023-07-18 08:54 | Outpatient (CLI) | payer OTHER | END 2023-07-18 08:55 | disposition home or self-care (01) | LOC: MADULT 08:54 | PROVIDERS: ATTEND Nurse Practitioner Family | DX: R10.9 Unspecified abdominal pain (principal) | CPT/HCPCS: 76700 ==

== ENCOUNTER 2025-01-09 20:01 | Emergency (ER) | payer MEDICAID, OTHER ==
[2025-01-09] MEDS ORDERED: Ondansetron PF 4 MG/2 ML Vial ONE (20:18)
[2025-01-09 20:23] LABS: Hematocrit 44.0 % (36.0-47.0); Hemoglobin 14.9 g/dL (12.0-16.0); MDiff Complete? YES; Mean Corpuscular Hemoglobin 31.0 pg (27.0-31.0); Mean Corpuscular Volume 91.8 fl (78.0-98.0); Platelet Count 350 10x3/uL (130-400); Red Blood Cell (RBC) Count 4.79 mill/uL (4.20-5.40); White Blood Cell (WBC) Count 7.8 10x3/uL (4.8-10.8)
[2025-01-09 20:41] LABS: ALT (SGPT) 33 U/L (Less than 34); AST (SGOT) 42 U/L (11-34); Albumin 4.5 g/dL (3.1-4.5); Alkaline Phosphatase 57 U/L (40-110); Anion Gap 19 mmol/L (10-20); BUN (Urea Nitrogen) 25 mg/dL (9.8-20.1); Bilirubin, Total 0.4 mg/dL (0.3-1.2); Calc. Creatinine Clearance 0 mL/min (70-130); Calcium 10.5 mg/dL (7.8-10.44); Carbon Dioxide 16 mmol/L (23-31); Chloride 102 mmol/L (98-107); Globulin 3.5 g/dL (2.4-3.5); Glucose 105 mg/dL (80-115); Potassium 4.3 mmol/L (3.5-5.1); Sodium 133 mmol/L (136-145)
[2025-01-09 20:42] LABS: Troponin I 0.016 ng/mL (< 0.028)
[2025-01-09 22:00] LABS: CAUTI Indications for Culture Dysuria,urgency,freq; Glucose, Urine (Dipstick) Negative (Negative); Leukocyte Negative (Negative); Protein, Urine (Dipstick) Negative (Neg-Trace); RBC/HPF None Seen HPF (0-3); Specific Gravity, Urine 1.010 (1.005-1.030); WBC/HPF None Seen HPF (0-3)
[2025-01-09 22:02] LABS: Cocaine Metabolite Screen Negative (Negative); THC/Cannabinoid Screen PRELIM POSITIVE (Negative); Tricyclic Screen Negative (Negative); Urine Culture Reflex No No
== END 2025-01-09 23:54 | disposition home or self-care (01) ==
LOC: MADERS 20:01
DX: R19.7 Diarrhea, unspecified (principal); E86.0 Dehydration; K21.9 Gastro-esophageal reflux disease without esophagitis; J44.9 Chronic obstructive pulmonary disease, unspecified; I12.9 Hypertensive chronic kidney disease with stage 1 through stage 4 chronic kidney disease, or unspecified chronic kidney disease; E11.22 Type 2 diabetes mellitus with diabetic chronic kidney disease; N18.9 Chronic kidney disease, unspecified; K58.1 Irritable bowel syndrome with constipation; F17.210 Nicotine dependence, cigarettes, uncomplicated; Z79.51 Long term (current) use of inhaled steroids; Z79.899 Other long term (current) drug therapy
CPT/HCPCS: 71045; 80053; 80306; 81001; 83605; 84484; 85025; 93005; 96361; 96374; J2405; J7030

== ENCOUNTER 2025-01-27 07:56 | Emergency (ER) | payer MEDICAID ==
[2025-01-27] MEDS ORDERED: Ketorolac Tromethamine 30 MG (1 mL) VIAL ONE (08:27)
[2025-01-27] MEDS ORDERED: Ondansetron PF 4 MG/2 ML Vial ONE (08:27)
[2025-01-27 08:36] LABS: #Basophils 0.1 thou/uL (0.0-0.2); #Eosinophils 0.1 thou/uL (0.0-0.7); #Lymphocytes 3.4 thou/uL (1.20-3.40); #Monocytes 0.5 thou/uL (0.11-0.59); #Neutrophils 3.5 thou/uL (1.40-6.50); %Basophils 1.5 % (0.0-1.0); %Eosinophils 0.9 % (0.0-10.0); %Lymphocytes 45.0 % (21.0-51.0); %Monocytes 6.4 % (0.0-10.0); %Neutrophils 46.2 % (42.0-75.0); Hematocrit 41.6 % (36.0-47.0); Hemoglobin 13.9 g/dL (12.0-16.0); Mean Corpuscular Hemoglobin 31.1 pg (27.0-31.0); Mean Corpuscular Volume 92.6 fl (78.0-98.0); Platelet Count 347 10x3/uL (130-400); Red Blood Cell (RBC) Count 4.49 mill/uL (4.20-5.40); White Blood Cell (WBC) Count 7.6 10x3/uL (4.8-10.8)
[2025-01-27 08:52] LABS: Bicarbonate (HCO3v) 29.5 mmol/L (22.0-28.0); CO2 Tension (PvCO2) 49.4 mmHg (42.0-51.0); Calcium, Ionized 1.24 mmol/L (1.15-1.33); Chloride 101 mmol/L (98-107); Hemoglobin - Calc 15.2 g/dL (12.0-16.0); Potassium 4.3 mmol/L (3.5-5.1); Sodium 136 mmol/L (138-145); T. Carbon Dioxide 31.1 mmol/L (22.0-28.0); vO2 Saturation-calc 73.7 % (60.0-85.0)
[2025-01-27] MEDS ORDERED: Iopamidol 370 76% 100 ML VIAL ONE (09:00)
[2025-01-27 09:08] LABS: Glucose, Urine (Dipstick) Negative (Negative); Leukocyte Negative (Negative); Protein, Urine (Dipstick) Negative (Neg-Trace); Specific Gravity, Urine 1.015 (1.005-1.030)
[2025-01-27 09:11] LABS: Bacteria/HPF Rare-Few HPF (None Seen); CAUTI Indications for Culture Pelvic or flank pain; RBC/HPF 0-3 HPF (0-3); WBC/HPF None Seen HPF (0-3)
[2025-01-27 09:12] LABS: Urine Culture Reflex No No
== END 2025-01-27 10:05 | disposition home or self-care (01) ==
LOC: MADERS 07:56
DX: K58.9 Irritable bowel syndrome, unspecified (principal); I10 Essential (primary) hypertension; F17.210 Nicotine dependence, cigarettes, uncomplicated; Z79.899 Other long term (current) drug therapy; Z79.51 Long term (current) use of inhaled steroids
CPT/HCPCS: 36415; 74177; 81001; 82330; 82435; 82803; 83605; 83690; 84132; 84295; 85014; 85025; 96374; 96375; J1885; J2270; J2405; J7030; Q9967

== ENCOUNTER 2025-02-06 14:24 | Outpatient (CLI) | payer MEDICAID | END 2025-02-06 14:25 | disposition home or self-care (01) | LOC: MADLAB 14:24 | PROVIDERS: ATTEND Family Medicine | DX: M54.50 Low back pain, unspecified (principal); M47.816 Spondylosis without myelopathy or radiculopathy, lumbar region | CPT/HCPCS: 72110 ==

== ENCOUNTER 2025-02-18 10:01 | Outpatient (CLI) | payer MEDICAID | END 2025-02-18 10:02 | disposition home or self-care (01) | LOC: MADRAD 10:01 | PROVIDERS: ATTEND Nurse Practitioner Family | DX: M25.562 Pain in left knee (principal); M17.12 Unilateral primary osteoarthritis, left knee ==

== ENCOUNTER 2025-04-09 15:54 | Emergency (ER) | payer MEDICAID ==
[~2025-04-09 15:54] MED LIST: Iopamidol 370 76% 100 ML VIAL ONE
[2025-04-09] MEDS ORDERED: Ketamine 50 MG/ML (10ML VIAL) ONE (16:44)
[2025-04-09 16:57] LABS: Bicarbonate (HCO3v) 24.3 mmol/L (22.0-28.0); CO2 Tension (PvCO2) 30.1 mmHg (42.0-51.0); Calcium, Ionized 1.01 mmol/L (1.15-1.33); Chloride 96 mmol/L (98-107); Hemoglobin - Calc 12.8 g/dL (12.0-16.0); Potassium 6.0 mmol/L (3.5-5.1); Sodium 125 mmol/L (138-145); T. Carbon Dioxide 25.2 mmol/L (22.0-28.0); vO2 Saturation-calc 69.5 % (60.0-85.0)
[2025-04-09 17:01] LABS: Anisocytosis SLIGHT = 6-15 cells (100X) (0-5/hpf); Hematocrit 34.9 % (36.0-47.0); Hemoglobin 12.0 g/dL (12.0-16.0); MDiff Complete? YES; Mean Corpuscular Hemoglobin 32.0 pg (27.0-31.0); Mean Corpuscular Volume 93.4 fl (78.0-98.0); Platelet Adequacy Comment Appears Adequate; Platelet Count 376 10x3/uL (130-400); Red Blood Cell (RBC) Count 3.74 mill/uL (4.20-5.40); White Blood Cell (WBC) Count 14.0 10x3/uL (4.8-10.8)
[2025-04-09 17:03] LABS: ALT (SGPT) 42 U/L (Less than 34); AST (SGOT) 45 U/L (11-34); Albumin 4.0 g/dL (3.1-4.5); Alkaline Phosphatase 46 U/L (40-110); Anion Gap 20 mmol/L (10-20); BUN (Urea Nitrogen) 26 mg/dL (9.8-20.1); Bilirubin, Total 0.8 mg/dL (0.3-1.2); Calc. Creatinine Clearance 0 mL/min (70-130); Calcium 9.5 mg/dL (7.8-10.44); Carbon Dioxide 21 mmol/L (23-31); Chloride 92 mmol/L (98-107); Globulin 3.5 g/dL (2.4-3.5); Glucose 113 mg/dL (80-115); Magnesium 1.7 mg/dL (1.6-2.6); Potassium 5.0 mmol/L (3.5-5.1); Sodium 128 mmol/L (136-145)
[2025-04-09 18:42] LABS: Glucose, Urine (Dipstick) Negative (Negative); Leukocyte Negative (Negative); Protein, Urine (Dipstick) Negative (Neg-Trace); Specific Gravity, Urine 1.010 (1.005-1.030)
[2025-04-09 18:43] LABS: Bacteria/HPF 2+ HPF (None Seen); CAUTI Indications for Culture Dysuria,urgency,freq; RBC/HPF 0-3 HPF (0-3); WBC/HPF 0-3 HPF (0-3)
[2025-04-09 18:44] LABS: Urine Culture Reflex No No
== END 2025-04-09 19:45 | disposition home or self-care (01) ==
LOC: MADERS 15:54
DX: R06.02 Shortness of breath (principal); E86.0 Dehydration; J44.9 Chronic obstructive pulmonary disease, unspecified; I10 Essential (primary) hypertension; K58.9 Irritable bowel syndrome, unspecified; F17.210 Nicotine dependence, cigarettes, uncomplicated; Z79.899 Other long term (current) drug therapy
CPT/HCPCS: 71045; 71275; 80053; 81001; 82330; 82435; 82803; 83735; 84132; 84295; 85014; 85025; 85379; 93005; 94760; 96361; 96374; J7030; Q9967